=== PATIENT | male | born 1990 | race Hispanic/Latino ===

== ENCOUNTER 2021-06-12 15:54 | Emergency (ER) | payer SELFPAY ==
[~2021-06-12] VITALS: Ht 172.7 cm; Wt 90.7 kg
[~2021-06-12 15:54] MED LIST: NO HOME MEDS
[2021-06-12 16:26] VITALS: BP 161/110
[2021-06-12 16:31] VITALS: BP 153/109
[2021-06-12 16:45] VITALS: BP 144/97
[2021-06-12] MEDS ORDERED: KEFLEX500 MG PO (16:48)
[2021-06-12 17:00] VITALS: BP 142/93
[2021-06-12 17:09] VITALS: BP 142/93
== END 2021-06-12 17:18 | disposition home or self-care (01) | DRG 914 ==
LOC: ED 15:54
DX: S61.247A Puncture wound with foreign body of left little finger without damage to nail, initial encounter (principal); S61.442A Puncture wound with foreign body of left hand, initial encounter; W26.8XXA Contact with other sharp object(s), not elsewhere classified, initial encounter; Y93.89 Activity, other specified; Y92.009 Unspecified place in unspecified non-institutional (private) residence as the place of occurrence of the external cause